=== PATIENT | female | born 1965 | race Caucasian/White ===

== ENCOUNTER 2016-03-12 13:16 | Outpatient (CLI) | payer MEDICAID | END 2016-03-12 13:17 | disposition home or self-care (01) | DX: R63.1 Polydipsia (principal); E03.9 Hypothyroidism, unspecified; R42 Dizziness and giddiness ==

== ENCOUNTER 2017-04-16 14:55 | Outpatient (CLI) | payer MEDICAID ==
[2017-04-16 17:23] LABS: BASOPHILS % (AUTO) 0.7 %; EOSINOPHILS # (AUTO) 0.4 10^3/uL (0.0-0.7); HGB - HEMOGLOBIN 13.7 g/dL (12.0-16.0); LYMPHOCYTES # (AUTO) 1.9 10^3/uL (1.5-3.5); LYMPHOCYTES % (AUTO) 33.3 %; MEAN CORPUSCULAR HEMOGLOBIN 29.7 pg (27.0-31.0); MEAN CORPUSCULAR HGB CONC 33.5 g/dL (32.0-36.0); MEAN CORPUSCULAR VOLUME 88.7 fL (81.0-99.0); MEAN PLATELET VOLUME 7.9 fL (7.9-10.8); MONOCYTES # (AUTO) 0.4 10^3/uL (0.0-1.0); MONOCYTES % (AUTO) 7.3 %; NEUTROPHILS % (AUTO) 51.7 %; PLT - PLATELET COUNT 272 10^3/uL (130-450); RED BLOOD COUNT 4.63 10^6/uL (4.20-5.40); WHITE BLOOD COUNT 5.8 x10^3/uL (4.8-10.8)
[2017-04-16 17:44] LABS: ALBUMIN 4.9 g/dL (3.2-5.5); ALBUMIN/GLOBULIN RATIO 1.7 (1.0-2.2); BILIRUBIN,TOTAL 0.9 mg/dL (0.2-1.0); CALCIUM 9.9 mg/dL (8.5-10.3); CREATININE 0.6 mg/dL (0.4-1.0); TOTAL PROTEIN 7.8 g/dL (6.7-8.2)
== END 2017-04-16 14:56 | disposition home or self-care (01) ==
LOC: LAB.F 14:55
PROVIDERS: ATTEND Nurse Practitioner Family
DX: R10.13 Epigastric pain (principal)
CPT/HCPCS: 36415; 80053; 85025

== ENCOUNTER 2021-01-05 08:00 | Outpatient (CLI) | payer MEDICAID ==
[2021-01-05 18:15] LABS: THYROID STIMULATING HORMONE 11.94 uIU/mL (0.34-5.60)
[2021-01-05 18:54] LABS: FREE T4 (FREE THYROXINE) 0.71 ng/dL (0.58-1.64)
== END 2021-01-05 23:59 | disposition home or self-care (01) ==
LOC: LAB.S 08:00
PROVIDERS: ATTEND Physician Assistant Medical
DX: E03.9 Hypothyroidism, unspecified (principal)
CPT/HCPCS: 36415; 84439; 84443

== ENCOUNTER 2021-01-29 16:57 | Emergency (ER) | payer MEDICAID ==
[2021-01-29 17:46] LABS: BASOPHILS % (AUTO) 0.5 %; EOSINOPHILS # (AUTO) 0.3 10^3/uL (0.0-0.7); EOSINOPHILS % (AUTO) 4.2 %; HCT - HEMATOCRIT 36.6 % (37.0-47.0); HGB - HEMOGLOBIN 12.7 g/dL (12.0-16.0); LYMPHOCYTES # (AUTO) 2.2 10^3/uL (1.5-3.5); LYMPHOCYTES % (AUTO) 27.3 %; MEAN CORPUSCULAR HEMOGLOBIN 31.6 pg (27.0-31.0); MEAN CORPUSCULAR HGB CONC 34.7 g/dL (32.0-36.0); MEAN PLATELET VOLUME 8.8 fL (7.9-10.8); MONOCYTES # (AUTO) 0.6 10^3/uL (0.0-1.0); MONOCYTES % (AUTO) 7.3 %; NEUTROPHILS # (AUTO) 4.8 10^3/uL (1.5-6.6); NEUTROPHILS % (AUTO) 60.3 %; PLT - PLATELET COUNT 259 10^3/uL (130-450); RED BLOOD COUNT 4.02 10^6/uL (4.20-5.40); RED CELL DISTRIBUTION WIDTH 11.9 % (12.0-15.0); WHITE BLOOD COUNT 7.9 x10^3/uL (4.8-10.8)
[2021-01-29 17:58] LABS: ALBUMIN/GLOBULIN RATIO 1.1 (1.0-2.2); BILIRUBIN,TOTAL 0.7 mg/dL (0.2-1.0); CALCIUM 9.4 mg/dL (8.5-10.3); CREATININE 0.8 mg/dL (0.4-1.0); POTASSIUM 3.5 mmol/L (3.5-5.0); TOTAL PROTEIN 7.5 g/dL (6.7-8.2)
[2021-01-29] MEDS ORDERED: SODIUM CHLORIDE 0.9% 1,000 ML IV STA (18:49)
[2021-01-29] MEDS ORDERED: HYDROmorphone 1 MG/ML CARPUJECT IVP STA (18:49)
[2021-01-29] MEDS ORDERED: ONDANSETRON 4 MG/2 ML VIAL IVP STA (18:49)
--- NOTE | 2021-01-29 18:52 | ED Physician Documentation ---
History of Present Illness - Stated complaint Stated Complaint: LT LOW ABD PX - Chief complaint Chief Complaint: Abd Pain - Additonal information Additional information: 55-year-old female presents emergency department for evaluation of 4 days left lower quadrant abdominal pain with some fever. Some nausea but no vomiting. No dysuria urgency or frequency. She does endorse painful bowel movements but no changes in color or consistency. She has never had a colonoscopy. This pain is similar to an ovarian cyst she had 34 years ago. Past surgical history significant for ovarian laparoscopic surgery at 35 years of age. Meds: sertraline, levothyroxine Review of Systems Constitutional: reports: Fever Nose: reports: Reviewed and negative Throat: reports: Reviewed and negative Cardiac: reports: Reviewed and negative Respiratory: reports: Reviewed and negative GI: reports: Abdominal Pain, Nausea. denies: Vomiting, Constipation, Diarrhea, Hematemesis : reports: Reviewed and negative Skin: reports: Reviewed and negative Musculoskeletal: reports: Reviewed and negative PD PAST MEDICAL HISTORY - Past Medical History Past Medical History: Yes Cardiovascular: None Respiratory: None Neuro: None Endocrine/Autoimmune: HyPOthyroidism GI: None SOFTWARE APPLICATION TESTER: Ovarian cysts : Other HEENT: None Psych: Anxiety Musculoskeletal: None Derm: None Other Past Medical History: bladder spasms - Past Surgical History Past Surgical History: Yes /SOFTWARE APPLICATION TESTER: Other - Present Medications Home Medications: Ambulatory Orders Medication Instructions Recorded Confirmed Amox/Clav 875/125 [Augmentin] 1 each PO Q12H #20 tablet 01/29/21 Levothyroxine Sodium [Synthroid] 150 mcg PO DAILY 01/29/21 01/29/21 Sertraline HCl mg PO DAILY 01/29/21 - Allergies Allergies/Adverse Reactions: Allergies Allergy/AdvReac Type Severity Reaction Status Date / Time No Known Drug Allergies Allergy Verified 01/29/21 17:07 - Social History Does the pt smoke?: No Smoking Status: Former smoker Does the pt drink ETOH?: No Does the pt have substance abuse?: No - Immunizations Immunizations are current?: Yes PD ED PE EXPANDED - General General: Alert, No acute distress - Cardiac Cardiac: Regular Rate, Abnormal Rate - Respiratory Respiratory: Clear to ausultation esdras. No: Distress, Labored - Abdomen Abdomen: Normal Bowel sounds (Focal tenderness left lower quadrant with mild rebound. No guarding.), Tender to palpation, LLQ - Neuro Neuro: Alert and Oriented X 3, CNII-XII intact - GCS Eye Opening: Spontaneous Motor: Obeys Commands Verbal: Oriented Total: 15 Results - Vitals Vitals: Vital Signs - 24 hr 01/29/21 01/29/21 01/29/21 17:03 18:40 20:00 Temperature 35.9 C L 36 C L 36.2 C L Heart Rate 96 78 77 Respiratory 18 18 18 Rate Blood Pressure 144/87 H 132/89 H 121/77 O2 Saturation 95 98 98 Oxygen O2 Source Room air - Labs Labs: Laboratory Tests 01/29/21 01/29/21 01/29/21 17:43 17:43 18:40 WBC 7.9 RBC 4.02 L Hgb 12.7 Hct 36.6 L MCV 91.0 MCH 31.6 H MCHC 34.7 RDW 11.9 L Plt Count 259 MPV 8.8 Neut # (Auto) 4.8 Lymph # (Auto) 2.2 [place] # (Auto) 0.6 Eos # (Auto) 0.3 Baso # (Auto) 0.0 Absolute Nucleated RBC 0.00 Nucleated RBC % 0.0 Sodium 135 Potassium 3.5 Chloride 100 L Carbon Dioxide 26 Anion Gap 9.0 BUN 13 Creatinine 0.8 Estimated GFR (MDRD) 75 L Glucose 147 H Calcium 9.4 Total Bilirubin 0.7 AST 60 H ALT 83 H Alkaline Phosphatase 122 H Total Protein 7.5 Albumin 4.0 Globulin 3.5 Albumin/Globulin Ratio 1.1 Lipase 27 Urine Color YELLOW Urine Clarity CLEAR Urine pH 6.0 Ur Specific [place] 1.025 Urine Protein NEGATIVE Urine Glucose (UA) NEGATIVE Urine Ketones TRACE Urine Occult Blood NEGATIVE Urine Nitrite NEGATIVE Urine Bilirubin NEGATIVE Urine Urobilinogen 0.2 (NORMAL) Ur Leukocyte Esterase NEGATIVE Ur Microscopic Review NOT INDICATED Urine Culture Comments NOT INDICATED Urine HCG, Qual 01/29/21 18:40 WBC RBC Hgb Hct MCV MCH MCHC RDW Plt Count MPV Neut # (Auto) Lymph # (Auto) [place] # (Auto) Eos # (Auto) Baso # (Auto) Absolute Nucleated RBC Nucleated RBC % Sodium Potassium Chloride Carbon Dioxide Anion Gap BUN Creatinine Estimated GFR (MDRD) Glucose Calcium Total Bilirubin AST ALT Alkaline Phosphatase Total Protein Albumin Globulin Albumin/Globulin Ratio Lipase Urine Color Urine Clarity Urine pH Ur Specific [place] Urine Protein Urine Glucose (UA) Urine Ketones Urine Occult Blood Urine Nitrite Urine Bilirubin Urine Urobilinogen Ur Leukocyte Esterase Ur Microscopic Review Urine Culture Comments Urine HCG, Qual NEGATIVE - Rads (name of study) CT abd Radiology: Final report received (Sigmoid diverticulitis without evidence of diverticular abscess or macroscopic free air. Slight wall thickening along the left bladder dome adjacent to the diverticular fat stranding without discrete fistula visualized or evidence of intraluminal gas. Cholelithiasis without evidence of cholecystit) PD MEDICAL DECISION MAKING - ED course Complexity details: reviewed results, re-evaluated patient, considered differential, d/w patient ED course: 55-year-old female presents emergency department for evaluation of 4 days left lower quadrant abdominal pain as well as painful but nonbloody bowel movements. She initially reported a fever at the onset of symptoms but none since. No hi story of previous colonoscopy. No vomiting. Screening labs without acute worrisome or actionable findings. CT of the abdomen did show sigmoid diverticulitis without abscess or perforation. Patient will be started on Augmentin. Her pain is well controlled thus no prescription was levied for analgesia. We discussed routine care measures as well as emergent return precautions. Patient is to follow closely with her primary care doctor and advised that she should have a screening colonoscopy in a few months time. Departure - Departure Disposition: Home, Self Care Clinical Impression: Sigmoid diverticulitis Condition: Stable Record reviewed to determine appropriate education?: Yes Instructions: ED Diverticulitis Prescriptions: Amox/Clav 875/125 [Augmentin] 1 each PO Q12H #20 tablet Comments: Bella bob are seen today in the emergency department for left lower abdominal pain. The CT scan confirms the condition I suspected, diverticulitis. However reassuringly there is no rupture of your intestine or abscess formed. Please fill the prescription for the Augmentin and begin taking twice daily for the next 10 days. I do recommend that for the next 24 hours you consume a clear liquid diet. The following morning you can start eating bananas, rice, applesauce and toast if your abdominal pain is better. It is going to be very very important that you get referred for a colonoscopy. If at any point you develop sudden severe or different pain, have fevers, have uncontrolled vomiting or have black or bloody stools then please return immediately to the ER for a second evaluation.
[2021-01-29 18:58] LABS: BILIRUBIN,URINE NEGATIVE (NEGATIVE); GLUCOSE, URINE (UA) NEGATIVE (NEGATIVE); KETONES,URINE (UA) TRACE mg/dL (NEGATIVE); LEUKOCYTE ESTERASE, URINE NEGATIVE (NEGATIVE); NITRITE,URINE NEGATIVE (NEGATIVE); OCCULT BLOOD,URINE NEGATIVE (NEGATIVE); PROTEIN,URINE NEGATIVE (NEGATIVE); UROBILINOGEN,URINE 0.2 (NORMAL) E.U./dL (NORMAL)
[2021-01-29 19:02] LABS: CLARITY,URINE CLEAR (CLEAR)
[2021-01-29] MEDS ORDERED: IOPAMIDOL-300 50 ML VIAL ONE (19:06)
[2021-01-29 19:24] LABS: HCG UR QUAL NEGATIVE
[2021-01-29 20:05] VITALS: BP 121/77
--- NOTE | 2021-01-29 20:14 | CT Report ---
PROCEDURE: Abdomen/Pelvis W INDICATIONS: 4 days LLQ pain with fever CONTRAST: IV CONTRAST: Isovue 300 ml: 100 PO CONTRAST: *NO PO CONTRAST TECHNIQUE: After the administration of intravenous contrast, 5 mm thick sections acquired from the diaphragms to the symphysis. 5 mm thick coronal and sagittal reformats were acquired. For radiation dose reducti on, the following was used: automated exposure control, adjustment of mA and/or kV according to sheryl ent size. COMPARISON: None. FINDINGS: Image quality: Excellent. ABDOMEN: Lung bases: There is mild dependent atelectasis bilaterally. Heart size is normal. There is a small h iatal hernia. Solid organs: There is hypoattenuation of the liver compatible with fatty infiltration. Calcified gal lstones demonstrated within a nondistended gallbladder. No gallbladder wall thickening or pericholecy stic fat stranding. Biliary system is non dilated. The spleen is normal in size. There is a nonspeci fic hypodense oval lesion within the spleen measuring up to 0.8 cm which is too small to characterize . Pancreas enhances normally without peripancreatic fat stranding or fluid collections. No adrenal n odules. Kidneys demonstrate no hydronephrosis. Peritoneum and bowel: Small bowel loops demonstrate normal wall thickness and caliber. The appendix i s normal in appearance. There is colonic diverticulosis with associated diverticular and segmental co lonic wall thickening in the sigmoid colon with pericolonic fat stranding consistent with acute diver ticulitis. No associated diverticular abscess or macroscopic free air identified. No definite free fl uid. Nodes and vessels: No retroperitoneal or mesenteric adenopathy by size criteria. Aorta and inferior vena cava are normal in size. Miscellaneous: No ventral hernias. PELVIS: Genitourinary: There is slight wall thickening along the left bladder dome adjacent to inflammatory d iverticular changes. No discrete fistula visualized. No intraluminal gas within the bladder. Miscellaneous: No inguinal hernias or adenopathy. Bones: No suspicious bony lesions. No vertebral body compression fractures. IMPRESSION: 1. Sigmoid diverticulitis without evidence of diverticular abscess or macroscopic free air. 2. Slight wall thickening along the left bladder dome adjacent to the diverticular fat stranding with out a discrete fistula visualized or evidence of intraluminal gas. 3. Cholelithiasis without CT evidence of cholecystitis. Reviewed by: Mitesh Martinez MD on 01/29/2021 8:12 PM PST Approved by: Mitesh Martinez MD on 01/29/2021 8:12 PM PST Station ID: [id number]
[2021-01-29] MEDS ORDERED: AMOX/CLAV 875 MG/125 MG TABLET PO STA (20:20)
[2021-01-29] MEDS ORDERED: IOPAMIDOL-300 100 ML VIAL IVP ONE (20:28)
== END 2021-01-29 21:03 | disposition home or self-care (01) ==
LOC: ED 16:57
DX: K57.32 Diverticulitis of large intestine without perforation or abscess without bleeding (principal); Z87.891 Personal history of nicotine dependence
CPT/HCPCS: 36415; 74177; 80053; 81003; 81025; 83690; 85025; 96374; 99283; 99284; A9270; Q9967; 81001; 87086

== ENCOUNTER 2021-05-31 09:24 | Outpatient (CLI) | payer MEDICAID ==
[2021-05-31 15:25] LABS: BASOPHILS # (AUTO) 0.1 10^3/uL (0.0-0.1); BASOPHILS % (AUTO) 0.9 %; EOSINOPHILS # (AUTO) 0.4 10^3/uL (0.0-0.7); EOSINOPHILS % (AUTO) 6.1 %; HCT - HEMATOCRIT 44.5 % (37.0-47.0); LYMPHOCYTES # (AUTO) 2.1 10^3/uL (1.5-3.5); LYMPHOCYTES % (AUTO) 31.6 %; MEAN CORPUSCULAR HEMOGLOBIN 30.7 pg (27.0-31.0); MEAN CORPUSCULAR HGB CONC 33.7 g/dL (32.0-36.0); MEAN CORPUSCULAR VOLUME 91.2 fL (81.0-99.0); MEAN PLATELET VOLUME 9.8 fL (7.9-10.8); MONOCYTES # (AUTO) 0.5 10^3/uL (0.0-1.0); MONOCYTES % (AUTO) 7.2 %; NEUTROPHILS # (AUTO) 3.6 10^3/uL (1.5-6.6); PLT - PLATELET COUNT 296 10^3/uL (130-450); RED BLOOD COUNT 4.88 10^6/uL (4.20-5.40); RED CELL DISTRIBUTION WIDTH 12.7 % (12.0-15.0); WHITE BLOOD COUNT 6.6 x10^3/uL (4.8-10.8)
[2021-05-31 15:46] LABS: ALBUMIN 4.4 g/dL (3.2-5.5); ALBUMIN/GLOBULIN RATIO 1.3 (1.0-2.2); ALKALINE PHOSPHATASE 118 IU/L (42-121); ALT ALANINE AMINOTRANSFERASE 49 IU/L (10-60); AST ASPARTATE AMINOTRANSFERASE 34 IU/L (10-42); BILIRUBIN,TOTAL 0.7 mg/dL (0.2-1.0); BUN - BLOOD UREA NITROGEN 14 mg/dL (6-20); CALCIUM 10.1 mg/dL (8.5-10.3); CARBON DIOXIDE - CO2 28 mmol/L (21-32); CHLORIDE 100 mmol/L (101-111); CHOL/HDL RATIO 7.3 (<4.4); CHOLESTEROL 338 mg/dL; CREATININE 0.8 mg/dL (0.4-1.0); GFR - MDRD 75 (>89); GLUCOSE 91 mg/dL (70-100); HDL CHOLESTEROL 46 mg/dL; POTASSIUM 4.2 mmol/L (3.5-5.0); SODIUM 137 mmol/L (135-145); TOTAL PROTEIN 7.9 g/dL (6.7-8.2); TRIGLYCERIDES 738 mg/dL
[2021-05-31 16:59] LABS: LDL CHOLESTEROL,DIRECT 105 mg/dL; LDLD/HDL RATIO 2.3 (<4.4)
== END 2021-05-31 09:25 | disposition home or self-care (01) ==
LOC: LAB.S 09:24
PROVIDERS: ATTEND Registered Nurse
DX: E03.9 Hypothyroidism, unspecified (principal); Z79.899 Other long term (current) drug therapy
CPT/HCPCS: 36415; 80053; 80061; 81599; 83721; 84479; 85025

== ENCOUNTER 2021-06-03 08:08 | Day surgery (SDC) | payer MEDICAID ==
[2021-06-03] MEDS ORDERED: LACTATED RINGERS 1,000 ML IV ONE (08:38)
--- NOTE | 2021-06-03 09:10 | ANESTHESIA ---
Pre-Anesthesia VS, & Labs - Diagnosis screening, GERD,Diverticulitis - Procedure EGD, Colonoscopy Vital Signs: Temp Pulse Resp BP Pulse Ox 36.4 C L 73 14 120/79 96 06/03/21 08:33 06/03/21 08:33 06/03/21 08:33 06/03/21 08:33 06/03/21 08:33 Height: 5 ft 5 in Weight (kg): 79 kg Body Mass Index: 29.0 BMI Classification: Overweight - NPO >8 hours - Is Patient ?: Not Applicable - Lab Results Lab results reviewed: Yes Home Medications and Allergies Home Medications: Ambulatory Orders Calcium Carbonate [Tums (Calcium Carbonate 500mg)] 500 mg PO DAILY 06/03/21 Levothyroxine Sodium [Synthroid] 150 mcg PO DAILY 01/29/21 Sertraline HCl 100 mg PO DAILY 01/29/21 Calcium Carbonate [Tums (Calcium Carbonate 500mg)] 500 mg PO DAILY 06/03/21 Allergies/Adverse Reactions: Allergies Allergy/AdvReac Type Severity Reaction Status Date / Time No Known Drug Allergies Allergy Verified 01/29/21 17:07 Anes History & Medical History - Anesthetic History Anesthesia Complications: reports: No previous complications Family history of Anesthesia Complications: Denies Family history of Malignant Hyperthermia: Denies - Medical History Cardiovascular: reports: None Pulmonary: reports: None Gastrointestinal: reports: None Urinary: reports: Other Neuro: reports: None Musculoskeletal: reports: None Endocrine/Autoimmune: reports: HyPOthyroidism Blood Disorders: reports: None Skin: reports: None Smoking Status: Former smoker - Surgical History General: Urologic: reports: Bladder surgery Gynecologic: reports: Other Exam General: Alert, Oriented x3, Cooperative, No acute distress Dental: WNL Mouth Openin Fingerbreadth Neck Mobility: Normal Mallampati classification: II Plan Anesthesia Type: General Consent for Procedure(s) Verified and Reviewed: Yes Code Status: Attempt Resuscitation ASA classification: 2-Mild systemic disease Is this case an emergency?: No
[2021-06-03] MEDS ORDERED: PROPOFOL 500 MG/50 ML 500 MG/50 ML VIAL ONE (09:27)
[2021-06-03] MEDS ORDERED: GLYCOPYRROLATE 1 MG/5 ML VIAL ONE (10:33)
[2021-06-03] MEDS ORDERED: PROPOFOL 200 MG/20 ML VIAL IVP ONE (10:34)
[2021-06-03] MEDS ORDERED: LACTATED RINGERS 200 ML IV ONE (10:37)
[2021-06-03 11:28] VITALS: BP 112/80
--- NOTE | 2021-06-03 13:44 | ANESTHESIA POST OP EVALUATION ---
Anesthesia Post Eval - Post Anesthesia Eval Vitals: Last Vital Signs Temp 36.2 C L 06/03/21 11:15 Pulse 78 06/03/21 11:15 Resp 16 06/03/21 11:15 BP 112/80 06/03/21 11:15 Pulse Ox 98 06/03/21 11:15 CV Function Including HR & BP: Stable Pain Control: Satisfactory Nausea & Vomiting: Negative Mental Status: Baseline Respiratory Status: Airway Patent Hydration Status: Satisfactory Anesthesia Complications: None
== END 2021-06-03 08:09 | disposition home or self-care (01) ==
LOC: SDS 08:08
PROVIDERS: ATTEND Surgery
PROC: 0DB58ZX Excision of Esophagus, Via Natural or Artificial Opening Endoscopic, Diagnostic (ICD-10-PCS; 2021-06-03)
PROC: 0DBL8ZX Excision of Transverse Colon, Via Natural or Artificial Opening Endoscopic, Diagnostic (ICD-10-PCS; 2021-06-03)
PROC: 0DB98ZX Excision of Duodenum, Via Natural or Artificial Opening Endoscopic, Diagnostic (ICD-10-PCS; principal; 2021-06-03 09:15)
PROC: 0DB68ZX Excision of Stomach, Via Natural or Artificial Opening Endoscopic, Diagnostic (ICD-10-PCS; 2021-06-03 09:15)
DX: Z12.11 Encounter for screening for malignant neoplasm of colon (principal); D12.3 Benign neoplasm of transverse colon; K21.9 Gastro-esophageal reflux disease without esophagitis; K22.2 Esophageal obstruction; K29.50 Unspecified chronic gastritis without bleeding; K31.7 Polyp of stomach and duodenum; K57.30 Diverticulosis of large intestine without perforation or abscess without bleeding; K64.8 Other hemorrhoids
CPT/HCPCS: 43239; 45380; J7120

== ENCOUNTER 2021-07-03 08:48 | Outpatient (CLI) | payer MEDICAID ==
--- NOTE | 2021-07-03 13:02 | Mammography Report ---
BILATERAL DIGITAL SCREENING MAMMOGRAM 3D/2D WITH EXAGGERATED CC: 07/03/2021 CLINICAL: Routine screening. Comparison is made to exams dated: 08/23/2014 mammogram, 07/08/2013 mammogram, and 05/25/2013 mammogram - [facility]. There are scattered fibroglandular elements in both breasts. There is a possible new 0.3 cm oval equal density asymmetry in the left breast middle depth central t o the nipple seen on the craniocaudal view only. No other significant masses, calcifications, or other findings are seen in either breast. IMPRESSION: INCOMPLETE: NEEDS ADDITIONAL IMAGING EVALUATION The possible new 0.3 cm oval equal density asymmetry in the left breast is indeterminate. Additional views with possible ultrasound are recommended. This exam was interpreted at Station ID: [id number]. NOTE: For mammograms, a report in lay terms will be sent to the patient. Approximately 15% of breast malignancies will not be visualized mammographically. In the management of a palpable breast mass, a negative mammogram must not discourage biopsy of a clinically suspicious lesion. Electronically Signed By: Osvaldo gao/hannah:07/03/2021 09:53:46 ACR BI-RADS Category 0: Incomplete 3340F PARENCHYMAL PATTERN: (A) - The breast(s) demonstrate(s) scattered fibroglandular densities. BI-RADS CATEGORY: (0) - 0 Mammo and [place] [id number] Immediate follow-up LATERALITY: (L)
== END 2021-07-03 08:49 | disposition home or self-care (01) ==
LOC: DI.S 08:48
PROVIDERS: ATTEND Registered Nurse
DX: Z12.31 Encounter for screening mammogram for malignant neoplasm of breast (principal); R92.8 Other abnormal and inconclusive findings on diagnostic imaging of breast

== ENCOUNTER 2022-06-25 07:55 | Outpatient (CLI) | payer MEDICAID ==
[2022-06-25 14:24] LABS: BASOPHILS # (AUTO) 0.1 10^3/uL (0.0-0.1); BASOPHILS % (AUTO) 1.1 %; EOSINOPHILS # (AUTO) 0.3 10^3/uL (0.0-0.7); EOSINOPHILS % (AUTO) 5.5 %; HGB - HEMOGLOBIN 13.7 g/dL (12.0-16.0); LYMPHOCYTES # (AUTO) 2.2 10^3/uL (1.5-3.5); LYMPHOCYTES % (AUTO) 38.6 %; MEAN CORPUSCULAR HEMOGLOBIN 29.8 pg (27.0-31.0); MEAN CORPUSCULAR HGB CONC 31.9 g/dL (32.0-36.0); MEAN CORPUSCULAR VOLUME 93.7 fL (81.0-99.0); MEAN PLATELET VOLUME 9.8 fL (7.9-10.8); MONOCYTES # (AUTO) 0.5 10^3/uL (0.0-1.0); MONOCYTES % (AUTO) 8.5 %; NEUTROPHILS # (AUTO) 2.6 10^3/uL (1.5-6.6); NEUTROPHILS % (AUTO) 46.1 %; PLT - PLATELET COUNT 254 10^3/uL (130-450); RED BLOOD COUNT 4.59 10^6/uL (4.20-5.40); RED CELL DISTRIBUTION WIDTH 12.4 % (12.0-15.0); WHITE BLOOD COUNT 5.7 x10^3/uL (4.8-10.8)
[2022-06-25 15:36] LABS: ALBUMIN 3.9 g/dL (3.2-5.5); ALBUMIN/GLOBULIN RATIO 1.3 (1.0-2.2); ALKALINE PHOSPHATASE 98 IU/L (42-121); ALT ALANINE AMINOTRANSFERASE 21 IU/L (10-60); AST ASPARTATE AMINOTRANSFERASE 19 IU/L (10-42); BILIRUBIN,TOTAL 0.5 mg/dL (0.2-1.0); BUN - BLOOD UREA NITROGEN 18 mg/dL (6-20); CALCIUM 9.2 mg/dL (8.5-10.3); CARBON DIOXIDE - CO2 28 mmol/L (21-32); CHLORIDE 107 mmol/L (101-111); CHOL/HDL RATIO 5.4 (<4.4); CHOLESTEROL 261 mg/dL; CREATININE 0.6 mg/dL (0.4-1.0); CRP HIGH SENSITIVITY 0.6 mg/L; GFR - MDRD 103 (>89); GLUCOSE 97 mg/dL (70-100); HDL CHOLESTEROL 48 mg/dL; LDL CHOLESTEROL,CALCULATED 179 mg/dL; LDL/HDL RATIO 3.7 (<4.4); POTASSIUM 4.3 mmol/L (3.5-5.0); SODIUM 138 mmol/L (135-145); TOTAL PROTEIN 6.9 g/dL (6.7-8.2); TRIGLYCERIDES 171 mg/dL; VLDL CHOLESTEROL 34 mg/dL
[2022-06-25 15:39] LABS: THYROID STIMULATING HORMONE 0.07 uIU/mL (0.34-5.60)
[2022-06-25 16:19] LABS: FREE T4 (FREE THYROXINE) 1.3 ng/dL (0.58-1.64)
== END 2022-06-25 07:56 | disposition home or self-care (01) ==
LOC: LAB.S 07:55
PROVIDERS: ATTEND Registered Nurse
DX: E03.9 Hypothyroidism, unspecified (principal); Z79.899 Other long term (current) drug therapy; Z13.220 Encounter for screening for lipoid disorders; R06.09 Other forms of dyspnea
CPT/HCPCS: 36415; 80053; 80061; 83721; 84439; 84443; 85025; 86141

== ENCOUNTER 2022-07-22 09:08 | Outpatient (CLI) | payer MEDICAID ==
--- NOTE | 2022-07-22 09:45 | CARDIAC PROCEDURE NOTE ---
Stress Test Report Service Date: 07/22/22 Service Time: 09:30 Ordering Provider: Jennifer Coronel FNP-C Indication for Test: Assess fatigue and reduction in stamina. Significant Medical History: Bella is referred for a stress echocardiogram today to assess for a subacute decrease in her energy level, with ongoing fatigue as well as heart pounding and breathlessness with exertion. She reports a history of hypothyroidism on replacement therapy and begins the discussion describing weight loss of approximately 20-25 pounds as a consequence of dietary changes that she made a couple of years ago, with elimination of sugar and white flour from her diet. About a year ago she had a mild case of COVID from which she felt that she had recovered uneventfully. Today she tells me that her current symptoms may have started as far back as a couple of years ago, but have significantly worsened in the past few months. 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 At times she has to pursue them and bring them back to their pen that requires climbing a hill, which makes her more winded than it used to. She relates an incident when she was folding laundry at mid-day a few weeks ago and became very symptomatic. A friend came over, observed her in this state and encouraged her to have this looked into. She is not aware of a family history of coronary heart disease, though her mother had valvular heart disease with endocarditis on 2 occasions, one of them requiring open heart surgery and followed by atrial fibrillation and at age 69 due to progression of her heart condition. Bella denies rest dyspnea, any chest pain or pressure whatsoever and lightheadedness. She feels that her sleep quality is reasonably good, though interrupted by nocturia; she is not aw are of severe snoring or apneas, though she does not have a bed partner currently. She does endorse increasing daytime somnolence, more frequently recently requiring her to take brief "power naps" during the day or when she becomes sleepy behind the wheel while driving. Her home is currently under renovation and she is staying with her daughter and sharing a room, so there may be an opportunity to gain her daughter's input regarding her sleep status at night. Cardiac Risk Factors: She does have a history of dyslipidemia, with a panel in May, showing total cholesterol 338, triglycerides 738 and HDLc 46. This was likely prior to her dietary changes and a more recent panel in June of this year showed total cholesterol 261, LDLc 179, HDLc 48 and triglycerides ~160; she she has never been treated for this condition. She has no history of diagnosed hypertension or diabetes, no known family history of coronary heart disease and though she smoked for several years as a younger woman she quit at age 25, so attributable risk of prior smoking for heart disease over 30 years later is rather low. Type of Stress Test: ETT with Echocardiography Procedure: -Exercise Treadmill Test- After signing informed consent, the patient underwent echo imaging at rest and then performed treadmill exercise using a Hugo protocol. The patient exercised for 7 minutes 2 seconds and achieved a peak heart rate of 150 (91 percent predicted maximum heart rate for age), and an estimated workload of 8.7 METS. The test was terminated due to fatigue/shortness of breath. Resting heart rate: 86 Peak heart rate: 150 Normal response to exercise. Resting BP: 121/73 Peak BP: 150/53 Blunted (though likely not frankly abnormal) BP response to exercise. Rhythm during exercise: Sinus rhythm throughout, without ectopy. Symptoms: She described no chest discomfort, without a disproportionate degree of breathlessness nor heart beating heavily. EKG at rest showed normal sinus rhythm with first-degree AV block (ID interval 241 msec), probable left atrial abnormality but otherwise normal. EKG at peak stress showed no ischemia by EKG criteria. In Recovery Heart rate and blood pressure rapidly/normally returned to baseline levels by 5 minutes. Echo imaging performed at rest and with stress will be reported separately. ITyrell MD, was present throughout this treadmill stress study and supervised it in its entirety. Summary: 1) Average exercise tolerance for age and sex as evidenced by VIVIANA of 2%. 2) Abnormal resting EKG (though with interpretable ST segments). 3) Adequate level of exercise was achieved on this treadmill stress test. 4) Normal BP response to exercise. 5) No ischemic changes by EKG criteria were seen at peak stress. 6) Preliminary echo image interpretation reveals normal left ventricular size, wall thickness and systolic function, with appropriate hyperdynamic augmentation of all segments with exercise, indicating no evidence of prior infarct or inducible ischemia. No significant valvular abnormality or elevation of est imated pulmonary artery systolic pressure seen on screening study. See separate report for more details. Conclusions and Recommendations: 1) Overall this appears to be a reassuring treadmill stress echocardiogram, with an exercise time that is average for age and sex, no dramatic symptoms of dyspnea or heart racing, no EKG evidence of inducible ischemia and echo images that are likely also reassuring. 2) She tells me that at a recent visit with her PCP, Ms. Coronel, her re-measured thyroid indices prompted a slight decrease in replacement dose, thus this does not seem to be contributory to her symptoms. Although she does not appear to be at especially increased risk for obstructive sleep apnea, she does have a left atrial abnormality on EKG and not much data about her sleep pattern. She has daytime somnolence requiring her to take naps, so screening for sleep apnea may be reasonable. 3) She had 2 different lipid panel phenotypes in 2021 and 2022 with the most recent showing significantly elevated LDL cholesterol. Although she does not have manifest evidence of atherosclerotic disease at present, it may be reasonable to consider initiation of a lowmoderate statin dose for primary ASCVD prevention.
== END 2022-07-22 09:09 | disposition home or self-care (01) ==
LOC: DI 09:08
PROVIDERS: ATTEND Registered Nurse
DX: R53.83 Other fatigue (principal); E78.5 Hyperlipidemia, unspecified; Z87.891 Personal history of nicotine dependence; R94.31 Abnormal electrocardiogram [ECG] [EKG]; R40.0 Somnolence
CPT/HCPCS: 93350

== ENCOUNTER 2022-11-28 19:26 | Outpatient (CLI) | payer MEDICAID | END 2022-11-28 19:27 | disposition home or self-care (01) | LOC: SC 19:26 | PROVIDERS: ATTEND Nurse Practitioner Family | DX: G47.61 Periodic limb movement disorder (principal) | CPT/HCPCS: 95810 ==

== ENCOUNTER 2023-02-26 07:00 | Outpatient (CLI) | payer MEDICAID ==
--- NOTE | 2023-02-26 14:30 | XRAY Report ---
PROCEDURE: Chest 2V INDICATIONS: THORACIC SPINE SPRAIN OF LIGAMENTS TECHNIQUE: 2 views of the chest were acquired. COMPARISON: None. FINDINGS: Surgical changes and devices: None. Lungs and pleura: No pleural effusions or pneumothorax. Lungs are clear. Mediastinum: Mediastinal contours appear normal. Heart size is normal. Bones and chest wall: No suspicious bony lesions. No acute fracture. Overlying soft tissues appear u nremarkable. IMPRESSION: 1.No acute cardiopulmonary process. 2.No acute osseous abnormality. Reviewed by: Alisa Juarez MD on 02/26/2023 2:28 PM PST Approved by: Alisa Juarez MD on 02/26/2023 2:28 PM PST Station ID: [id number]
== END 2023-02-26 23:59 | disposition home or self-care (01) ==
LOC: DI.S 07:00
PROVIDERS: ATTEND Emergency Medicine
DX: S23.3XXA Sprain of ligaments of thoracic spine, initial encounter (principal)

== ENCOUNTER 2023-09-07 07:58 | Outpatient (CLI) | payer MEDICAID ==
[2023-09-07 08:15] LABS: BASOPHILS # (AUTO) 0.1 10^3/uL (0.0-0.1); BASOPHILS % (AUTO) 0.8 %; EOSINOPHILS # (AUTO) 0.3 10^3/uL (0.0-0.7); EOSINOPHILS % (AUTO) 4.9 %; HCT - HEMATOCRIT 41.2 % (37.0-47.0); HGB - HEMOGLOBIN 14.4 g/dL (12.0-16.0); LYMPHOCYTES # (AUTO) 1.9 10^3/uL (1.5-3.5); LYMPHOCYTES % (AUTO) 32.5 %; MEAN CORPUSCULAR HEMOGLOBIN 31.8 pg (27.0-31.0); MEAN CORPUSCULAR VOLUME 90.9 fL (81.0-99.0); MONOCYTES # (AUTO) 0.4 10^3/uL (0.0-1.0); NEUTROPHILS # (AUTO) 3.3 10^3/uL (1.5-6.6); NEUTROPHILS % (AUTO) 54.5 %; PLT - PLATELET COUNT 254 10^3/uL (130-450); RED BLOOD COUNT 4.53 10^6/uL (4.20-5.40); RED CELL DISTRIBUTION WIDTH 11.7 % (12.0-15.0)
[2023-09-07 08:31] LABS: AMYLASE 34 U/L (28-100); CHOL/HDL RATIO 9.1 (<4.4); CHOLESTEROL 328 mg/dL; HDL CHOLESTEROL 36 mg/dL; LIPASE 63 U/L (11-82)
[2023-09-07 08:45] LABS: THYROID STIMULATING HORMONE 5.62 uIU/mL (0.34-5.60)
[2023-09-07 09:19] LABS: POTASSIUM 4.2 mmol/L (3.5-4.5)
[2023-09-07 09:29] LABS: ALBUMIN 4.5 g/dL (3.2-5.5); ALBUMIN/GLOBULIN RATIO 1.7 (1.0-2.2); ALKALINE PHOSPHATASE 116 IU/L (42-121); ALT ALANINE AMINOTRANSFERASE 27 IU/L (10-60); AST ASPARTATE AMINOTRANSFERASE 21 IU/L (10-42); BILIRUBIN,TOTAL 0.4 mg/dL (0.2-1.0); BUN - BLOOD UREA NITROGEN 16 mg/dL (6-20); CALCIUM 9.7 mg/dL (8.5-10.3); CARBON DIOXIDE - CO2 27 mmol/L (21-32); CHLORIDE 101 mmol/L (101-111); CREATININE 0.7 mg/dL (0.6-1.3); GFR - MDRD 86 (>89); GLUCOSE 101 mg/dL (74-104); SODIUM 135 mmol/L (135-145); TOTAL PROTEIN 7.1 g/dL (6.4-8.9)
[2023-09-07 10:03] LABS: TRIGLYCERIDES 1890 mg/dL
[2023-09-07 10:17] LABS: LDL CHOLESTEROL,DIRECT 101 mg/dL (75-193); LDLD/HDL RATIO 2.8 (<4.4)
--- NOTE | 2023-09-07 13:54 | Ultrasound Report ---
PROCEDURE: Abdomen Complete INDICATIONS: NAUSEA VOMITING TECHNIQUE: Real-time scanning was performed of the abdominal and retroperitoneal organs, with image documentatio n. COMPARISON: CT 01/29/2021 FINDINGS: Liver: Increased liver echogenicity, commonly mild hepatic steatosis. Gallbladder: Cholelithiasis without wall thickening. Negative sonographic Steele sign. Adenomyomatosi s present. Biliary ducts: Intrahepatic bile ducts are non-dilated. Extrahepatic bile duct caliber measures mm. Normal is 6-7 mm or less in diameter, or 10 mm or less post-cholecystectomy. Pancreas: Visualized portions of the pancreas are sonographically normal. Spleen: Spleen is normal in size and homogeneous in echotexture. Kidneys: Kidneys are normal in size and echotexture. Right kidney measures 11.4 cm long; left kidne y measures 11.1 cm long. No hydronephrosis or nephrolithiasis. No solid masses. No complex renal cy stic lesions which require follow-up. Benign left hepatic cyst measuring 2.5 cm. Aorta: Visualized aorta is normal in caliber at less than 3 cm. Iliacs: Proximal common iliac arteries are normal in caliber at less than 2.5 cm. IVC: Intrahepatic inferior vena cava is patent. Miscellaneous: No free abdominal fluid. IMPRESSION: Cholelithiasis without sonographic evidence of acute cholecystitis. Increased liver echogenicity, commonly mild hepatic steatosis. Reviewed by: Lucho Briones MD on 09/07/2023 1:53 PM PDT Approved by: Lucho Briones MD on 09/07/2023 1:53 PM PDT Station ID: [id number]
== END 2023-09-07 07:59 | disposition home or self-care (01) ==
LOC: DI 07:58
PROVIDERS: ATTEND Registered Nurse
DX: R11.2 Nausea with vomiting, unspecified (principal); K80.20 Calculus of gallbladder without cholecystitis without obstruction; Z13.228 Encounter for screening for other metabolic disorders; Z13.220 Encounter for screening for lipoid disorders; Z13.29 Encounter for screening for other suspected endocrine disorder; Z13.0 Encounter for screening for diseases of the blood and blood-forming organs and certain disorders involving the immune mechanism
CPT/HCPCS: 36415; 80053; 80061; 82150; 83690; 83721; 84439; 84443; 85025